=== PATIENT | female | born 1995 | race Caucasian/White ===

== ENCOUNTER 2017-05-15 04:19 | Emergency (ER) | payer SELFPAY ==
[2017-05-15 04:20] VITALS: BP 102/63; PULSE 101; RESP 16; TEMP 98.5; O2SAT 96
--- NOTE | 2017-05-15 04:58 | PD ---
HPI Chief Complaint: ENT Complaint Time Seen by Provider: 04:34 Travel History International Travel<30 days: No Contact w/Intl Traveler<30days: No Traveled to known affect area: No History of Present Illness HPI The patient is a 22 year old female who presents to the [facility] emergency department with a history of a sore throat that reportedly began 2 days ago. She reports it has been associated with body aches, nausea, elevated temperature with a MAXIMUM TEMPERATURE of 99 today. She has not had any vomiting or diarrhea. She has been moving her bowels regularly. She reports that she has recurrent problems with strep throat and her symptoms are similar. On review of systems, the patient denies any significant cough, congestion, neck pain, chest pain, shortness of breath, abdominal pain, vomiting, diarrhea, urinary symptoms, or neurologic symptoms. LMP: Ended yesterday PFSH Past Medical History Narrative Medical The patient's past medical history is significant for recurrent strep throat. Medical History: Denies Significant Hx ?: Not Past Surgical History Narrative Surgical The patient's past surgical history is reportedly none. Surgical History: No Previous Surgery Social History Alcohol Use: Yes (occassionally) Tobacco Use: Yes (one cigarette per day) Allergies-Medications (Allergen,Severity, Reaction): Coded Allergies: No Known Allergies (Unverified , 05/15/17) Reported Meds & Prescriptions Reported Meds & Active Scripts Active No Active Prescriptions or Reported Medications Review of Systems Except as stated in HPI: all other systems reviewed are Neg General / Constitutional: No: Fever Eyes: No: Visual changes HENT: Positive: Sore Throat, No: Headaches, Congestion Cardiovascular: No: Chest Pain or Discomfort Respiratory: No: Cough, Shortness of Breath Gastrointestinal: Positive: Nausea, No: Vomiting, Diarrhea, Abdominal Pain, Changes in Bowel Habits, Indigestion, Loss of Appetite Genitourinary: No: Dysuria Musculoskeletal: Positive: Myalgias, No: Pain Skin: No Rash Neurologic: No: Weakness, Focal Abnormalities, Change in Mentation, Slurred Speech, Sensory Disturbance Psychiatric: No: Depression Endocrine: No: Polydipsia Hematologic/Lymphatic: No: Easy Bruising Physical Exam Narrative General: The patient is a well-developed well-nourished female in no acute distress. Head and Neck exam: Head is normocephalic atraumatic. Eyes: EOMI, pupils are equal round and reactive to light. Nose: Midline septum with pink mucous membranes Mouth: Dentition unremarkable. Moist mucus membranes. Posterior oropharynx is erythematous with mild tonsillar hypertrophy. The patient has tonsillar exudates noted. Uvula midline. Airway patent. Neck: The patient has palpable anterior cervical adenopathy in the tonsillar region that is tender on palpation, worse on the left compared to the right. No nuchal rigidity. No thyromegaly. Cardiovascular: Regular rate and rhythm without murmurs, gallops, or rubs. Lungs: Clear to auscultation bilaterally. No wheezes, rhonchi, or rales. Abdomen: Soft, without tenderness to palpation in all 4 quadrants of the abdomen. No guarding, rebound, or rigidity. Normal bowel sounds are audible. No tenderness on palpation of McBurney's point. Extremities: No clubbing, cyanosis, or edema. No calf tenderness on palpation. Back: No costovertebral angle tenderness to palpation. Neurologic Exam: Grossly nonfocal. Skin Exam: No rash noted. Intact skin that is warm and dry. Data Data Last Documented VS Vital Signs Date Time Temp Pulse Resp B/P Pulse Ox O2 Delivery O2 Flow Rate FiO2 05/15/17 04:20 98.5 101 16 102/63 96 Room Air Orders Group A Rapid Strep Screen (05/15/17 04:36) Strep Culture (Group A) (05/15/17 04:47) [facility] Medical Decision Making Medical Screen Exam Complete: Yes Emergency Medical Condition: No Medical Record Reviewed: Yes Differential Diagnosis Strep pharyngitis, versus viral pharyngitis, versus other viral syndrome Narrative Course During the course of the patients emergency department visit, the patients history, examination, and differential diagnosis were reviewed with the patient. The patient had a rapid strep test sent for analysis. The patients laboratory studies were reviewed and remarkable for a rapid strep test that was negative. Given the patient's classic examination findings with exudative pharyngitis without cough, and anterior cervical lymphadenopathy, the patient will be treated with antibiotic. The patient is resting comfortably and feels better, is alert and in no distress. The patients results and examination findings were discussed with the patient. The repeat examination is unremarkable and benign. The history, exam, diagnostic testing, and current condition do not suggest any significant pathology to warrant further testing, continued ED treatment, admission, or surgical evaluation at this point. The vital signs have been stable. The patient does not have uncontrollable pain, intractable vomiting, or other significant symptoms. The patient's condition is stable and appropriate for discharge. The patient will pursue further outpatient evaluation with a primary care physician or other designated or consulting physician as indicated in the discharge instructions. The patient expressed understanding and was agreeable with this plan. Diagnosis Primary Impression: Acute pharyngitis Qualified Code: J02.9 - Acute pharyngitis, unspecified etiology Referrals: Primary Care Physician Patient Instructions: General Instructions, Pharyngitis (ED) Med/Other Pt SpecificInfo: Prescription(s) given Scripts Amoxicillin 500 Mg [id number] Mg PO BID 10 Days Ref 0 Prov:Lora Varma MD 05/15/17 Disposition: 01 DISCHARGE HOME Condition: Stable Lora Varma MD May 15, 2017 04:58
[2017-05-15] MEDS ORDERED: AMOX500C PO (05:29)
== END 2017-05-15 05:47 | disposition home or self-care (01) ==
LOC: NEPC 04:19
DX: J02.9 Acute pharyngitis, unspecified (principal); R11.0 Nausea; M79.1 Myalgia; F17.210 Nicotine dependence, cigarettes, uncomplicated
CPT/HCPCS: 87081; 87880; 99283